=== PATIENT | female | born 1970 | race Caucasian/White ===

== ENCOUNTER 2016-02-12 18:05 | Emergency (ER) | payer MEDICAID ==
[2016-02-12] MEDS ORDERED: METHYLPRED SOD SUCC 125 MG/2 ML VIAL ONE (20:17)
[2016-02-12] MEDS ORDERED: DUONEB INH ONE (20:20)
[2016-02-12] MEDS ORDERED: ACETAMINOPHEN 325 MG TAB ONE (21:25)
[2016-02-12] MEDS ORDERED: LEVOFLOXACIN 500 MG TAB ONE (22:47)
[2016-02-12] MEDS ORDERED: KETOROLAC 30 MG/ML VIAL ONE (23:02)
== END 2016-02-13 00:35 | disposition home or self-care (01) ==
LOC: ER 18:05
CPT/HCPCS: 36415; 71010; 71250; 80053; 84703; 85025; 93005; 94640; 96374; 96375